=== PATIENT | male | born 1995 | race Caucasian/White ===

== ENCOUNTER 2018-09-20 17:51 | Emergency (ER) | payer BC, OTHER ==
[2018-09-20 18:30] VITALS: RESP 16; TEMP 98.5
[2018-09-20] MEDS ORDERED: DIAZEPAM 5 MG TAB PO STA (18:40)
[2018-09-20] MEDS ORDERED: ONDANSETRON ODT 8 MG TAB.RAPDIS PO STA (18:40)
[2018-09-20] MEDS ORDERED: cloNIDine 0.3 MG/24HR PATCH TRANSDERM SCH (18:45)
--- NOTE | 2018-09-20 18:50 | ED ---
Abdominal Pain HPI - General Chief Complaint: Abdominal Pain Stated Complaint: heroin withdrawal Time Seen by Provider: 09/20/18 18:40 Source: patient, family, RN notes reviewed, old records reviewed Mode of arrival: ambulatory Limitations: no limitations - History of Present Illness Initial Comments: This is a 22-year-old male the ER for evaluation. Patient was essay for abdominal pain nausea, underlying heroin withdrawal. Last used 2 days ago. No other complaints no chest pain or shortness of breath no bowel pain. No current diarrhea. MD Complaint: abdominal pain -: days(s) Location: diffuse Radiation: none Migration to: no migration Severity scale (1-10): 3 Quality: cramping, aching Consistency: intermittent Improves With: nothing Worsens With: nothing Associated Symptoms: nausea, vomiting, diarrhea Treatments Prior to Arrival: prescription analgesics (Heroin) - Related Data Home Medications Medication Instructions Recorded Confirmed No Known Home Medications 12/07/14 04/11/16 Allergies Allergy/AdvReac Type Severity Reaction Status Date / Time No Known Allergies Allergy Verified 09/20/18 18:31 Review of Systems ROS Statement: Those systems with pertinent positive or pertinent negative responses have been documented in the HPI. ROS Other: All systems not noted in ROS Statement are negative. Past Medical History Past Medical History: No Reported History History of Any Multi-Drug Resistant Organisms: None Reported Past Surgical History: No Surgical Hx Reported Past Psychological History: No Psychological Hx Reported Smoking Status: Former smoker Past Alcohol Use History: Rare Past Drug Use History: Heroin, Marijuana, Prescription Drug Abuse General Exam Limitations: no limitations General appearance: alert, in no apparent distress Head exam: Present: atraumatic, normocephalic, normal inspection Eye exam: Present: normal appearance, PERRL, EOMI. Absent: scleral icterus, conjunctival injection, periorbital swelling ENT exam: Present: normal exam, mucous membranes moist Neck exam: Present: normal inspection. Absent: tenderness, meningismus, lymphadenopathy Respiratory exam: Present: normal lung sounds bilaterally. Absent: respiratory distress, wheezes, rales, rhonchi, stridor Cardiovascular Exam: Present: normal rhythm, tachycardia, normal heart sounds. Absent: systolic murmur, diastolic murmur, rubs, gallop, clicks GI/Abdominal exam: Present: soft, normal bowel sounds. Absent: distended, tenderness, guarding, rebound, rigid Extremities exam: Present: normal inspection, full ROM, normal capillary refill. Absent: tenderness, pedal edema, joint swelling, calf tenderness Back exam: Present: normal inspection Neurological exam: Present: alert, oriented X3, CN II-XII intact Psychiatric exam: Present: normal affect, normal mood Skin exam: Present: warm, dry, intact, normal color. Absent: rash Course Vital Signs 09/20/18 18:24 Temperature 98.5 F Pulse Rate 114 H Respiratory 16 Rate Blood Pressure 123/81 O2 Sat by Pulse 99 Oximetry - Reevaluation(s) Reevaluation #1: 09/20/18 19:03 Medical record is reviewed Reevaluation #2: 09/20/18 19:03 Signs improved, symptoms improved Medical Decision Making - Medical Decision Making 22-year-old male the ER with signs and symptoms of heroin withdrawal. Patient symptoms are improved here in the ER, patient given Catapres patch, patient not actively nausea vomiting in no distress and can be discharged home Disposition Clinical Impression: Heroin withdrawal Disposition: HOME SELF-CARE Condition: Good Instructions (If sedation given, give patient instructions): Opioid Withdrawal (ED) Is patient prescribed a controlled substance at d/c from ED?: No Referrals: Brett Sheridan III, MD [Primary Care Provider] - 1-2 days
[2018-09-20 20:43] VITALS: BP 119/50; PULSE 77
== END 2018-09-20 20:43 | disposition home or self-care (01) ==
LOC: EC 17:51
DX: F11.23 Opioid dependence with withdrawal (principal); R00.0 Tachycardia, unspecified; Z87.891 Personal history of nicotine dependence
CPT/HCPCS: 99284

== ENCOUNTER 2021-10-17 08:52 | Emergency (ER) | payer BC ==
[2021-10-17 09:06] VITALS: RESP 18
--- NOTE | 2021-10-17 09:15 | ED ---
Lower Extremity Injury HPI - General Chief Complaint: Extremity Injury, Lower Stated Complaint: foot injury Time Seen by Provider: 10/17/21 09:07 Source: patient, RN notes reviewed Mode of arrival: ambulatory Limitations: no limitations - History of Present Illness Initial Comments: 25-year-old male presents to emergency Department chief complaint of right foot first digit toe pain. Patient states that he dropped a 20 pound weight on it days ago. Patient states that there was no bleeding he states he is a throbbing pain increasing discomfort with ambulation no paresthesias. No pain proximal to his first digit. - Related Data Previous Rx's Medication Instructions Recorded Diazepam [Valium] 5 mg PO TID PRN 3 Days #9 tab 09/20/18 Ondansetron Odt [Zofran ODT] 4 mg PO Q8HR PRN #30 tab 09/20/18 Allergies Allergy/AdvReac Type Severity Reaction Status Date / Time No Known Allergies Allergy Verified 10/17/21 09:06 Review of Systems ROS Statement: Those systems with pertinent positive or pertinent negative responses have been documented in the HPI. ROS Other: All systems not noted in ROS Statement are negative. Past Medical History Past Medical History: No Reported History History of Any Multi-Drug Resistant Organisms: None Reported Past Surgical History: No Surgical Hx Reported Past Psychological History: No Psychological Hx Reported Past Alcohol Use History: Rare Past Drug Use History: Heroin, Marijuana, Prescription Drug Abuse General Exam Limitations: no limitations General appearance: alert, in no apparent distress Head exam: Present: atraumatic, normocephalic, normal inspection Respiratory exam: Present: normal lung sounds bilaterally. Absent: respiratory distress, wheezes, rales, rhonchi, stridor Cardiovascular Exam: Present: regular rate, normal rhythm, normal heart sounds. Absent: systolic murmur, diastolic murmur, rubs, gallop, clicks Extremities exam: Present: other (Right foot first digit there is a large subungual hematoma noted, no open lacerations there is no tenderness proximal to the digit or over the MTP region) Skin exam: Present: warm, dry Course Vital Signs 10/17/21 09:02 Pulse Rate 64 Respiratory 18 Rate Blood Pressure 126/68 O2 Sat by Pulse 100 Oximetry Procedures - Procedures Initial comment: Rate for first digit subungual hematoma after cautery was used, a large amount of blood is alleviated, pain was reduced from patient Medical Decision Making - Medical Decision Making X-rays negative for acute fracture. Patient has subungual hematoma patient was discharged after use electrocautery, pressure relieved. Patient will follow-up with PCP return parameters discussed. Disposition Clinical Impression: Hematoma, subungual, toe, right Disposition: HOME SELF-CARE Condition: Stable Instructions (If sedation given, give patient instructions): Subungual Hematoma (ED) Additional Instructions: Please return to the Emergency Department if symptoms worsen or any other concerns. Is patient prescribed a controlled substance at d/c from ED?: No Referrals: Brett Sheridan III, MD [Primary Care Provider] - 1-2 days Time of Disposition: 10:25
--- NOTE | 2021-10-17 09:56 | XR ---
EXAMINATION TYPE: XR toes RT DATE OF EXAM: 10/17/2021 COMPARISON: NONE HISTORY: Pain TECHNIQUE: 3 views submitted FINDINGS: Osseous structures intact. Patient is tiny bony density off the distal margin proximal phal anx appears chronic. IMPRESSION: No acute fracture or dislocation. If symptoms persist follow-up exam in 7-10 days recomme nded.
[2021-10-17 11:26] VITALS: BP 122/64; PULSE 75
== END 2021-10-17 11:26 | disposition home or self-care (01) ==
LOC: EC 08:52
DX: S99.921A Unspecified injury of right foot, initial encounter (principal); S90.121A Contusion of right lesser toe(s) without damage to nail, initial encounter; X50.0XXA Overexertion from strenuous movement or load, initial encounter

== ENCOUNTER 2022-04-13 12:34 | Emergency (ER) | payer BC ==
[2022-04-13 13:08] VITALS: RESP 16; TEMP 97.9
[2022-04-13 14:18] LABS: Amorphous Sediment,Urine Rare /hpf; Appearance,Urine Turbid (Clear); Bacteria,Urine Occasional /hpf; Bilirubin,Urine Negative (Negative); Blood,Urine Negative (Negative); Color,Urine Yellow; Glucose,Urine (UA) Negative (Negative); Ketones,Urine Negative (Negative); Leukocyte Esterase,Urine Small (Negative); Mucus,Urine Many /hpf; Nitrite,Urine Negative (Negative); PH, Urine 6.5 (5.0-8.0); Protein,Urine 1+ (Negative); RBC,Urine 6 /hpf (0-5); Squamous Epithelial Cell,Urine 1 /hpf (0-4); WBC,Urine 15 /hpf (0-5)
[2022-04-13 14:20] LABS: Amphetamine Screen,Urine Not Detected (NotDetected); Barbiturate Screen,Urine Not Detected (NotDetected); Benzodiazepines Screen,Urine Not Detected (NotDetected); Cocaine Screen,Urine Not Detected (NotDetected); Methadone Screen, Urine Not Detected (NotDetected); Opiate Screen,Urine Not Detected (NotDetected); Oxycodone Screen, Urine Not Detected (NotDetected); Phencyclidine Screen,Urine Not Detected (NotDetected); Tricyclic Antidepressant,Urine Detected (NotDetected); Urn Cannabinoid Scrn Detected (NotDetected)
--- NOTE | 2022-04-13 15:40 | ED ---
Psych HPI - General Chief Complaint: Psychiatric Symptoms Stated Complaint: abd pain Time Seen by Provider: 04/13/22 13:11 Source: patient, RN notes reviewed Mode of arrival: ambulatory - History of Present Illness Initial Comments: This is a 26-year-old male who presents to the emergency department for psychiatric evaluation. When he initially came in, he states that he had ab dominal pain, and he later confessed that he was suffering from worsening depression and the abdominal pain was not true. He does have a long standing history of depression that has been worsened lately by multiple life stressors and trying to recover from heroin abuse. He has no history of inpatient psychiatric hospitalization. He denies any suicidal or homicidal ideations, but states that he feels very hopeless. Also denies any auditory or visual hallucinations. He is taking Lamictal, Prozac, and Seroquel, which were prescribed by [facility] in [place]. States that he follows up with them each month, but does not believe that his current doses are effective. Denies any fevers, chills, sore throat, cough, dyspnea, chest pain, palpitations, abdominal pain, nausea, vomiting, diarrhea, back pain, or headaches. MD Complaint: feels depressed History of same: Yes - Related Data Previous Rx's Medication Instructions Recorded Ondansetron Odt [Zofran ODT] 4 mg PO Q8HR PRN #30 tab 09/20/18 diazePAM [Valium] 5 mg PO TID PRN 3 Days #9 tab 09/20/18 Allergies Allergy/AdvReac Type Severity Reaction Status Date / Time No Known Allergies Allergy Verified 04/13/22 13:08 Review of Systems ROS Statement: Those systems with pertinent positive or pertinent negative responses have been documented in the HPI. ROS Other: All systems not noted in ROS Statement are negative. Past Medical History Past Medical History: No Reported History History of Any Multi-Drug Resistant Organisms: None Reported Past Surgical History: No Surgical Hx Reported Past Psychological History: No Psychological Hx Reported Smoking Status: Former smoker Past Alcohol Use History: Rare Past Drug Use History: Heroin, Marijuana, Prescription Drug Abuse General Exam Limitations: no limitations General appearance: alert, in no apparent distress Head exam: Present: atraumatic, normocephalic, normal inspection Respiratory exam: Present: normal lung sounds bilaterally. Absent: respiratory distress, wheezes, rales, rhonchi, stridor Cardiovascular Exam: Present: regular rate, normal rhythm, normal heart sounds. Absent: systolic murmur, diastolic murmur, rubs, gallop, clicks Neurological exam: Present: alert, oriented X3, CN II-XII intact Psychiatric exam: Present: depressed, flat affect. Absent: homicidal ideation, suicidal ideation Skin exam: Present: warm, dry, intact, normal color. Absent: rash Course Vital Signs 04/13/22 13:04 Temperature 97.9 F Pulse Rate 87 Respiratory 16 Rate Blood Pressure 97/63 O2 Sat by Pulse 97 Oximetry Medical Decision Making - Medical Decision Making This is a 26-year-old male who presents to the emergency department for psychiatric evaluation. Urine drug screen positive for tricyclic antidepressants and marijuana. EtOH was negative and he was clear for EPS evaluation. EPS states that the patient was going back and forth on voluntary admission versus discharge home. He ultimately decided that he was safe for discharge. EPS created a safety plan with the patient, and the patient again reiterated to me that he is not having any suicidal or homicidal ideations and feels like he will be safe going home. Instructed him to review his safety plan and make sure that he follows it. I advised that he contact [facility] when he is discharged today or early tomorrow morning to see if he can get a sooner appointment or have any medication adjustments be made over the phone. Return precautions reviewed in depth, the patient is instructed to return to the emergency department with any new, worsening, or concerning symptoms. Patient verbalized understanding. This case was discussed in detail with the attending ED physician. Presentation, findings, and treatment plan discussed in detail as well. - Lab Data Lab Results 04/13/22 Range/Units 13:36 Urine Color Yellow Urine Appearance Turbid (Clear) Urine pH 6.5 (5.0-8.0) Ur Specific [place] 1.020 (1.001-1.035) Urine Protein 1+ H (Negative) Urine Glucose (UA) Negative (Negative) Urine Ketones Negative (Negative) Urine Blood Negative (Negative) Urine Nitrite Negative (Negative) Urine Bilirubin Negative (Negative) Urine Urobilinogen 2.0 (<2.0) mg/dL Ur Leukocyte Esterase Small H (Negative) Urine RBC 6 H (0-5) /hpf Urine WBC 15 H (0-5) /hpf Ur Squamous Epith Cells 1 (0-4) /hpf Amorphous Sediment Rare H (None) /hpf Urine Bacteria Occasional H (None) /hpf Urine Mucus Many H (None) /hpf Urine Opiates Screen Not Detected (NotDetected) Ur Oxycodone Screen Not Detected (NotDetected) Urine Methadone Screen Not Detected (NotDetected) Ur Propoxyphene Screen Not Detected (NotDetected) Ur Barbiturates Screen Not Detected (NotDetected) U Tricyclic Antidepress Detected H (NotDetected) Ur Phencyclidine Scrn Not Detected (NotDetected) Ur Amphetamines Screen Not Detected (NotDetected) U Methamphetamines Scrn Not Detected (NotDetected) U Benzodiazepines Scrn Not Detected (NotDetected) Urine Cocaine Screen Not Detected (NotDetected) U Marijuana (THC) Screen Detected H (NotDetected) Disposition Clinical Impression: Depression Disposition: HOME SELF-CARE Instructions (If sedation given, give patient instructions): Depression (ED) Additional Instructions: Return to the emergency department with any new, worsening, or concerning symptoms. Make sure that you follow your safety plan. Contact your psychiatrist and see if you can get a sooner appointment or if they would be willing to make any medication adjustments over the phone. Follow up with your primary care provider in 1-2 days. Is patient prescribed a controlled substance at d/c from ED?: No Referrals: Brett Sheridan III, MD [Primary Care Provider] - 1-2 days
[2022-04-13 16:27] VITALS: BP 105/60; PULSE 76
== END 2022-04-13 16:36 | disposition home or self-care (01) ==
LOC: EC 12:34
DX: F32.A Depression, unspecified (principal); F12.90 Cannabis use, unspecified, uncomplicated; F11.10 Opioid abuse, uncomplicated; Z87.891 Personal history of nicotine dependence
CPT/HCPCS: 80306; 81001; 82075; 87086; 99284